=== PATIENT | female | born 1990 | race Caucasian/White ===

== ENCOUNTER 2017-05-10 22:41 | Emergency (ER) | payer OTHER ==
[~2017-05-10] VITALS: Ht 165.1 cm; Wt 90.5 kg
[~2017-05-10 22:41] MED LIST: AZIT500T2 PO
--- NOTE | 2017-05-11 00:36 | EKG ---
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
[2017-05-11 01:05] VITALS: BP 130/83
--- NOTE | 2017-05-11 01:07 | PHYS DOC ---
Past History Past Medical History: No Pertinent History, Hypertension Past Surgical History: Alcohol Use: None Drug Use: None Adult General Chief Complaint Chief Complaint: HYPERTENSION HPI HPI Patient is a 26 year old female who presents with hypertension. The patient states she is 7 weeks after complicated by gestational hypertension & preeclampsia. She states her blood pressure remained elevated after delivery so she continues to take nifedipine prescribed by Dr. Harrison. Today she had frontal throbbing headache, not sudden in onset, not the worst headache of her life, so she decided to check her blood pressure. It was 150s/ 90s so she came to the emergency department. She doesn't know what her normal blood pressure has been in the past few weeks. She denies fevers, vision changes, chest pain, shortness of breath, abdominal pain, extremity numbness/ weakness, lower extremity pain/swelling. She missed her 6 week follow up appointment yesterday. Review of Systems Review of Systems Constitutional: Denies fever or chills Eyes: Denies change in visual acuity HENT: Denies nasal congestion or sore throat Respiratory: Denies cough or shortness of breath Cardiovascular: Denies chest pain or edema GI: Denies abdominal pain, nausea, vomiting Musculoskeletal: Denies back pain or joint pain Integument: Denies rash or skin lesions Neurologic: Reports headache, denies focal weakness or sensory changes Allergies Allergies Allergies Coded Allergies Type Severity Reaction Last Updated Verified No Known Drug Allergies 08/11/16 No Physical Exam Physical Exam Constitutional: Well developed, well nourished, no acute distress, non-toxic appearance. HENT: Normocephalic, atraumatic, bilateral external ears normal, oropharynx moist, nose normal. Eyes: PERRLA, EOMI, conjunctiva normal, no discharge. Neck: supple, no stridor. no meningismus Cardiovascular: RRR, no murmurs, no edema. Lungs & Thorax: LCTAB, no wheezing, no respiratory distress. Abdomen: soft, nontender, nondistended. Skin: Warm, dry, no erythema, no rash. Back: No tenderness. Extremities: No tenderness, no edema. Neurologic: Alert and oriented X 3, no focal deficits noted. Psychologic: Affect normal, judgement normal, mood normal. EKG EKG interpreted by me: NSR rate 80, no acute ST/T wave changes, normal intervals, no ectopy.[] Radiology/Procedures Radiology/Procedures [] Course & Med Decision Making Course & Med Decision Making Pertinent Labs and Imaging studies reviewed. (See chart for details) The patient presents with elevated blood pressure. Asymptomatic at the time of my evaluation. Her headache had essentially resolved. Discussed briefly with Dr. Harrison who did not recommend any additional evaluation for preeclampsia at this time. Patient denies any symptoms to suggest end organ damage. Recommend medication compliance. Follow-up with Dr. Harrison this week and make an appointment with a primary care physician. Return to the emergency department for sudden onset of severe headache, worst headache of her life, severe chest pain or shortness of breath, severe edema, any otherwise worsening condition. Discharged home in stable condition. [] Dragon Disclaimer Dragon Disclaimer This chart was dictated in whole or in part using Voice Recognition software in a busy, high-work load, and often noisy Emergency Department environment. It may contain unintended and wholly unrecognized errors or omissions. Departure Departure: Impression: Primary Impression: Essential hypertension Disposition: 01 HOME, SELF-CARE Condition: STABLE Referrals: PCP,NO (PCP) Patient Instructions: Hypertension, [id number] Additional Instructions: You were seen in the emergency department today for elevated blood pressure. Your blood pressure is higher than desired for intermediate, but did not require emergency treatment tonight. Please make an appointment as soon as possible with a primary care physician to discuss management of your blood pressure. Return to the emergency department for severe headache of your life, sudden onset of severe headache, severe chest pain or shortness of breath, numbness or weakness in arms or legs, any otherwise worsening condition. JV GUTHRIE MD May 11, 2017 01:07
== END 2017-05-11 01:10 | disposition home or self-care (01) ==
LOC: ER 22:41
DX: I10 Essential (primary) hypertension (principal); Z98.890 Other specified postprocedural states
CPT/HCPCS: 93005; 99283-25

== ENCOUNTER 2019-03-26 21:37 | Emergency (ER) | payer BC, OTHER ==
[~2019-03-26] VITALS: Ht 165.1 cm; Wt 94.3 kg
--- NOTE | 2019-03-26 21:45 | ED.ADGEN ---
Past History Past Medical History: Hypertension, Migraines Past Surgical History: Smoking: Cigarettes Alcohol Use: None Drug Use: Marijuana, Other Adult General Chief Complaint Chief Complaint ".. Well .. I got this pounding headache.. I get it when I don't take my meds for my blood pressure... I just now refilled my Lorsartin script... I had not taken it for a month .. because I did not think .. I needed it any more.. " HPI HPI Patient is a 28 year old female who presents with above hx and complaints of migraine headache with accelerated HTN. Pt. admits to noncompliance with Lorsartin BP med. Pt. normally follows with Dr. Garcia. Patient not taking her blood pressure meds for over a month. Patient does smoke and use marijuana and CBD oil. Patient denies any trauma. Patient denies any history of immunosuppression. Patient denies any specific ill contacts or travel. Patient states her headache or migraine headache is like previous episodes of migraine when her blood pressure gets elevated. Review of Systems Review of Systems Constitutional: Denies fever or chills [] Eyes: Denies change in visual acuity, redness, or eye pain [] HENT: Denies nasal congestion or sore throat [] Respiratory: Denies cough or shortness of breath [] Cardiovascular: No additional information not addressed in HPI [] GI: Denies abdominal pain, nausea, vomiting, bloody stools or diarrhea [] : Denies dysuria or hematuria [] Musculoskeletal: Denies back pain or joint pain [] Integument: Denies rash or skin lesions [] Neurologic: Complaints of headache. denies focal weakness or sensory changes [] Endocrine: Denies polyuria or polydipsia [] All other systems were reviewed and found to be within normal limits, except as documented in this note. Family History Family History Non-contributory Current Medications Current Medications Current Medications Medications (Trade) Dose Ordered Sig/Priscila Start Time Stop Time Status Last Admin Dose Admin Acetaminophen (Tylenol) 1,000 mg 1X ONCE 03/26/19 22:45 03/26/19 22:46 DC Clonidine HCl (Catapres) 0.2 mg 1X ONCE 03/26/19 22:45 03/26/19 22:46 DC Lactated Ringer's 1,000 ml @ 1,000 mls/hr Q1H 03/26/19 22:26 03/26/19 23:19 DC Allergies Allergies Allergies Coded Allergies Type Severity Reaction Last Updated Verified No Known Drug Allergies 08/11/16 No Physical Exam Physical Exam Constitutional: no acute distress, non-toxic appearance. [] HENT: Normocephalic, atraumatic, bilateral external ears normal, oropharynx moist, no oral exudates, nose normal. No temporal artery tenderness Eyes: PERRLA, EOMI, conjunctiva normal, no discharge. [] Neck: Normal range of motion, no tenderness, supple, no stridor. [] Cardiovascular:Heart rate regular rhythm, no murmur [] Lungs & Thorax: Bilateral breath sounds equal with few scattered wheezes on auscultation [] Abdomen: Bowel sounds normal, soft, no tenderness, no masses, no pulsatile masses. Obese Skin: Warm, dry, no erythema, no rash. [] Back: No tenderness, no CVA tenderness. [] Extremities: No tenderness, no cyanosis, no clubbing, ROM intact, no edema. [] DTR is +2 patella and brachial. 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 No drift. Ambulatory without problems. Neurologic: Alert and oriented X 3, normal motor function, normal sensory function, no focal deficits noted. [] Psychologic: Affect anxious, judgement normal, mood normal. [] Current Patient Data Vital Signs Vital Signs Date Time Temp Pulse Resp B/P (MAP) Pulse Ox O2 Delivery O2 Flow Rate FiO2 03/26/19 23:16 20 139/85 (103) 98 03/26/19 22:51 86 Room Air Lab Results Laboratory Tests Test 03/26/19 22:02 03/26/19 22:15 Urine Collection Type Unknown Urine Color Straw Urine Clarity Clear Urine pH 7.0 Urine Specific [place] 1.010 Urine Protein Neg (NEG-TRACE) Urine Glucose (UA) Neg mg/dL (NEG) Urine Ketones (Stick) Neg mg/dL (NEG) Urine Blood Neg (NEG) Urine Nitrite Neg (NEG) Urine Bilirubin Neg (NEG) Urine Urobilinogen Dipstick 0.2 mg/dL (0.2 mg/dL) Urine Leukocyte Esterase Neg (NEG) Urine RBC 0 /HPF (0-2) Urine WBC 0 /HPF (0-4) Urine Squamous Epithelial Cells Occ /LPF Urine Bacteria 0 /HPF (0-FEW) Urine Opiates Screen Neg (NEG) Urine Methadone Screen Neg (NEG) Urine Barbiturates Neg (NEG) Urine Phencyclidine Screen Neg (NEG) Urine Amphetamine/Methamphetamine Neg (NEG) Urine Benzodiazepines Screen Neg (NEG) Urine Cocaine Screen Neg (NEG) Urine Cannabinoids Screen Pos (NEG) Urine Ethyl Alcohol Pos (NEG) POC Urine HCG, Qualitative hcg negative (Negative) EKG EKG I interpretation of EKG shows a sinus rhythm at 69 bpm. No acute pathology appreciated other occasional p wave irregularity. [] Radiology/Procedures Radiology/Procedures Patient declines CT of head-exhibits [facility] capacity[] Course & Med Decision Making Course & Med Decision Making Pertinent Labs and Imaging studies reviewed. (See chart for details) Pt. while waiting for labs- BP returned to normal. Headache resolved. Pt. declines to complete labs, or CT. Requesting discharge. Pt. to take HTN meds as previously directed. Encourage to stop smoking. [] Final Impression Final Impression 1. Accelerated HTN 2. Migraine Headache 3. Tobacco and Marijuana use[] 4. Alcohol use 5. Noncompliance with medical regimen Dragon Disclaimer Dragon Disclaimer This electronic medical record was generated, in whole or in part, using a voice recognition dictation system. Discharge Summary Visit Information Final Diagnosis Problems Medical Problems: (1) Accelerated hypertension Status: Acute Brief Hospital Course Allergies Allergies Coded Allergies Type Severity Reaction Last Updated Verified No Known Drug Allergies 08/11/16 No Vital Signs Vital Signs Date Time Temp Pulse Resp B/P (MAP) Pulse Ox O2 Delivery O2 Flow Rate FiO2 03/26/19 23:16 20 139/85 (103) 98 03/26/19 22:51 86 Room Air Lab Results Laboratory Tests Test 03/26/19 22:02 03/26/19 22:15 Urine Collection Type Unknown Urine Color Straw Urine Clarity Clear Urine pH 7.0 Urine Specific [place] 1.010 Urine Protein Neg (NEG-TRACE) Urine Glucose (UA) Neg mg/dL (NEG) Urine Ketones (Stick) Neg mg/dL (NEG) Urine Blood Neg (NEG) Urine Nitrite Neg (NEG) Urine Bilirubin Neg (NEG) Urine Urobilinogen Dipstick 0.2 mg/dL (0.2 mg/dL) Urine Leukocyte Esterase Neg (NEG) Urine RBC 0 /HPF (0-2) Urine WBC 0 /HPF (0-4) Urine Squamous Epithelial Cells Occ /LPF Urine Bacteria 0 /HPF (0-FEW) Urine Opiates Screen Neg (NEG) Urine Methadone Screen Neg (NEG) Urine Barbiturates Neg (NEG) Urine Phencyclidine Screen Neg (NEG) Urine Amphetamine/Methamphetamine Neg (NEG) Urine Benzodiazepines Screen Neg (NEG) Urine Cocaine Screen Neg (NEG) Urine Cannabinoids Screen Pos (NEG) Urine Ethyl Alcohol Pos (NEG) Bedside Urine HCG, Qualitative hcg negative (Negative) Brief Hospital Course Ms. Eldridge is a 28 old female who presented with accelerated HTN due non- compliance with her HTN meds. Suspect HTN induced headache. Discharge Information Condition at Discharge: Improved, Stable Disposition/Orders: D/C to Home Dischare Medications Current Medications Clonidine HCl (Catapres) 0.2 mg 1X ONCE PO ; Start 03/26/19 at 22:45; Stop 03/26/19 at 22:46; Status DC Lactated Ringer's 1,000 ml @ 1,000 mls/hr Q1H IV ; Start 03/26/19 at 22:26; Stop 03/26/19 at 23:19; Status DC Acetaminophen (Tylenol) 1,000 mg 1X ONCE PO ; Start 03/26/19 at 22:45; Stop 03/26/19 at 22:46; Status DC Active Scripts Active Zithromax Tri-Jerardo (Azithromycin) 500 Mg Tablet 1 Tab PO DAILY Shai Disclaimer This chart was dictated in whole or in part using Voice Recognition software in a busy, high-work load, and often noisy Emergency Department environment. It may contain unintended and wholly unrecognized errors or omissions. RIGOBERTO POLLACK MD Mar 26, 2019 21:45
[2019-03-26] MEDS ORDERED: IV RINGERS SOLUTION,LACTATED 1,000 ML IV SCH (22:26)
[2019-03-26 22:36] LABS: AMPHETAMINE/METHAMPHETAMINE NEG (NEG); BARBITURATES NEG (NEG); BENZODIAZEPINES NEG (NEG); CANNABINOIDS POS (NEG); COCAINE NEG (NEG); METHADONE NEG (NEG); OPIATES NEG (NEG); PHENCYCLIDINE NEG (NEG)
[2019-03-26] MEDS ORDERED: cloNIDine HCL 0.1 MG TABLET PO ONE (22:45)
[2019-03-26] MEDS ORDERED: ACETAMINOPHEN 500 MG TABLET PO ONE (22:45)
[2019-03-26 22:52] LABS: BACTERIA,URINE 0 /HPF (0-FEW); BILIRUBIN,URINE NEG (NEG); CLARITY,URINE CLEAR; COLOR,URINE STRAW; GLUCOSE,URINE NEG (NEG); NITRITE,URINE NEG (NEG); RBC,URINE 0 /HPF (0-2); SQUAMOUS EPITHELIAL CELL,UR OCC /LPF; UROBILINOGEN,URINE 0.2 mg/dL (0.2 mg/dL); WBC,URINE 0 /HPF (0-4)
[2019-03-26 23:16] VITALS: BP 139/85
--- NOTE | 2019-03-27 07:45 | EKG ---
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
== END 2019-03-26 23:19 | disposition home or self-care (01) ==
LOC: ER 21:37
DX: I10 Essential (primary) hypertension (principal); G43.909 Migraine, unspecified, not intractable, without status migrainosus; F17.210 Nicotine dependence, cigarettes, uncomplicated; F12.90 Cannabis use, unspecified, uncomplicated; F10.10 Alcohol abuse, uncomplicated; Z91.14 Patient's other noncompliance with medication regimen; Y90.0 Blood alcohol level of less than 20 mg/100 ml
CPT/HCPCS: 36415; 80307; 81001; 81025; 93005; 99285

== ENCOUNTER 2019-09-04 10:39 | Emergency (ER) | payer BC ==
[~2019-09-04] VITALS: Ht 165.1 cm; Wt 95.8 kg
[2019-09-04] MEDS ORDERED: AZIT250T PO (11:08)
--- NOTE | 2019-09-04 11:08 | PHYS DOC ---
Past History Past Medical History: Hypertension, Migraines Past Surgical History: Smoking: Cigarettes Alcohol Use: Occasionally Drug Use: Marijuana, Other Adult General Chief Complaint Chief Complaint: SORE THROAT HPI HPI Patient is a 28-year-old female who presents with complaint of sinus congestion with purulent nasal drainage as well as productive cough for the last 5 days. Patient states that she is 10 weeks . She denies any fever. She denies any chest pain or shortness of breath. She states that the cough is been keeping her up at night.[] Review of Systems Review of Systems Constitutional: Denies fever or chills [] HENT: Positive congestion and purulent nasal drainage[] Respiratory: Positive cough without shortness of breath [] Cardiovascular: No additional information not addressed in HPI [] Integument: Denies rash or skin lesions [] Neurologic: Denies headache, focal weakness or sensory changes [] Allergies Allergies Allergies Coded Allergies Type Severity Reaction Last Updated Verified No Known Drug Allergies 08/11/16 No Physical Exam Physical Exam Constitutional: Well developed, well nourished, no acute distress, non-toxic appearance. [] HENT: Normocephalic, atraumatic, bilateral external ears normal, oropharynx moist, no oral exudates, nose normal. [] Cardiovascular:Heart rate regular rhythm, no murmur [] Lungs & Thorax: Bilateral breath sounds clear to auscultation [] Extremities: No tenderness, no cyanosis, no clubbing, ROM intact, no edema. [] Neurologic: Alert and oriented X 3, no focal deficits noted. [] EKG EKG [] Radiology/Procedures Radiology/Procedures [] Course & Med Decision Making Course & Med Decision Making Pertinent Labs and Imaging studies reviewed. (See chart for details) [] Dragon Disclaimer Dragon Disclaimer This electronic medical record was generated, in whole or in part, using a voice recognition dictation system. Departure Departure: Impression: Primary Impression: Acute bronchitis Disposition: 01 HOME, SELF-CARE Condition: STABLE Referrals: KSENIA GONZALES MD (PCP) Patient Instructions: Acute Bronchitis Scripts Azithromycin (ZITHROMAX) 250 Mg Tablet 1 PKG PO UD for infection, #6 TAB Prov: BHASKAR TOVAR Jr. DO 09/04/19 Problem Qualifiers Primary Impression: Acute bronchitis Bronchitis organism: unspecified organism Qualified Codes: J20.9 - Acute bronchitis, unspecified BHASKAR TVOAR Jr. DO Sep 04, 2019 11:08
[2019-09-04 11:15] VITALS: BP 121/76
== END 2019-09-04 11:15 | disposition home or self-care (01) ==
LOC: ER 10:39
DX: O99.511 Diseases of the respiratory system complicating pregnancy, first trimester (principal); J20.9 Acute bronchitis, unspecified; O16.1 Unspecified maternal hypertension, first trimester; G43.909 Migraine, unspecified, not intractable, without status migrainosus; O99.331 Smoking (tobacco) complicating pregnancy, first trimester; Z3A.10 10 weeks gestation of pregnancy
CPT/HCPCS: 99283

== ENCOUNTER → 2019-10-24 | Outpatient (CLI) | payer BC ==
[~2019-10-24] MED LIST changes: +AZIT250T PO
--- NOTE | 2019-10-24 15:52 | RAD ---
EXAM: Obstetric sonogram. HISTORY: Size and dates discrepancy. TECHNIQUE: Sonographic imaging of a gravid uterus was performed. COMPARISON: None. FINDINGS: There is a single intrauterine fetus in cephalic presentation with a normal heart rate of 149 bpm. The amniotic fluid index is normal at 10.6 cm. There is an anterior placenta without evidence of placenta previa. Evaluation of the anatomy is limited due to maternal body habitus. The umbilical cord insertion, facial profile and sacrum are not well seen. The remainder the anatomy is unremarkable. There is a three-vessel umbilical cord. The cervix is closed and measures 5.1 cm in length. The biparietal diameter is 4.13 cm, corresponding with 18 weeks and 4 days. The head circumference is 15.81 cm, corresponding with 18 weeks and 5 days. The abdominal circumference is 13.95 cm, corresponding with 19 weeks and 2 days. The femoral length is 2.5 cm, corresponding with 19 weeks and 1 day. The estimated gestational age patient combined also measurements is 19 weeks and 0 days and the estimated due date is 03/19/2020. The estimated weight is 277 g. The estimated gestational age based on LMP is 18 weeks and 5 days. IMPRESSION: 1. Single intrauterine fetus in cephalic presentation with a normal heart rate and gestational age based on ultrasound measurements of 19 weeks and 0 days. The gestational age based on LMP is 18 weeks and 5 days. 2. Suboptimal evaluation of the anatomy due to maternal body habitus. The facial profile and sacrum and umbilical cord insertion are not well seen. The remainder of the anatomy is grossly unremarkable. Electronically signed by: Samira Deutsch MD (10/24/2019 3:49 PM) [facility] [place]
== END | disposition home or self-care (01) ==
LOC: US 10:35
PROVIDERS: ATTEND Obstetrics & Gynecology
DX: O26.842 Uterine size-date discrepancy, second trimester (principal); O09.92 Supervision of high risk pregnancy, unspecified, second trimester
CPT/HCPCS: 76805

== ENCOUNTER → 2020-02-18 | Outpatient (CLI) | payer BC, OTHER ==
--- NOTE | 2020-02-18 16:44 | RAD ---
EXAM: Obstetrics sonogram. HISTORY: Size and dates discrepancy. TECHNIQUE: Sonographic imaging of the uterus was performed. COMPARISON: 10/24/2019. FINDINGS: There is a single intrauterine fetus in cephalic presentation with a normal heart rate of 139 bpm. There is a three-vessel umbilical cord with normal insertion. There is body motion. There is an anterior placenta without evidence of placenta previa. The amniotic fluid index is normal at 14.1 cm. The stomach, bladder, brain and extremities are unremarkable. There is a four-chamber heart. The biparietal diameter is 8.9 cm, corresponding with 35 weeks and 6 days. The head circumference is 33.1 cm, corresponding with 37 weeks and 5 days. The abdominal sequential images 34.0 cm, corresponding with 7 weeks and 6 days. The femoral length is 6.7 cm, corresponding with 34 weeks and 4 days. The estimated gestational age patient combined also measurements is 36 weeks and 4 days and the estimated weight is 3049 g. This corresponds with the 80th percentile for a gestational age of 34 weeks and 3 days based on LMP. The estimated due date is 03/13/2020. IMPRESSION: Single uterine fetus with an estimated gestational age based on sonographic measurements of 36 weeks and 4 days. The estimated weight is at the 80th percentile for a gestational age of 34 weeks and 3 days based on LMP. Electronically signed by: Samira Deutsch MD (02/18/2020 4:41 PM) [facility]
== END ==
LOC: US 14:49
PROVIDERS: ATTEND Obstetrics & Gynecology
DX: O26.843 Uterine size-date discrepancy, third trimester (principal); Z3A.34 34 weeks gestation of pregnancy
CPT/HCPCS: 76815